=== PATIENT | female | born 2000 | race Caucasian/White ===

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

== ENCOUNTER → 2020-05-19 | Outpatient (CLI) | payer BC | LOC: YCFC.O 16:31 | PROVIDERS: ATTEND Family Medicine | DX: Z00.00 Encounter for general adult medical examination without abnormal findings (principal); R30.9 Painful micturition, unspecified ==